=== PATIENT | male | born 2005 | race Two or more races ===

== ENCOUNTER 2024-10-11 17:06 | Emergency (ER) | payer SELFPAY ==
[~2024-10-11] VITALS: Ht 172.7 cm; Wt 59.1 kg
[2024-10-11 17:11] VITALS: BP 98/56; PULSE 58; RESP 16; TEMP 98; O2SAT 100
== END 2024-10-11 20:52 | disposition home or self-care (01) ==
LOC: EMS 17:06
DX: S63.592A Other specified sprain of left wrist, initial encounter (principal); G62.9 Polyneuropathy, unspecified; F17.210 Nicotine dependence, cigarettes, uncomplicated; W06.XXXA Fall from bed, initial encounter; Y93.89 Activity, other specified; Y92.89 Other specified places as the place of occurrence of the external cause; Y99.8 Other external cause status
CPT/HCPCS: 99283